=== PATIENT | male | born 1955 | race Caucasian/White ===

== ENCOUNTER 2017-05-16 20:45 | Emergency (ER) | payer OTHER ==
[2017-05-16 20:58] VITALS: BP 179/93; PULSE 68; TEMP 98; BMI 32.5
[2017-05-16] MEDS ORDERED: KETOROLAC TROMETHAMINE 30 MG/1 ML VIAL IM ONE (21:34)
--- NOTE | 2017-05-16 21:35 | PDOC ---
History of Present Illness - General Chief Complaint: Pain Stated Complaint: LEG PAIN Time Seen by Provider: 05/16/17 21:28 History Source: Patient Exam Limitations: No Limitations - History of Present Illness Initial Comments: 05/16/17 21:35 CHIEF COMPLAINT: Leg pain HISTORY OF PRESENT ILLNESS: This is a 61 year old male with a history of HTN and gout (on daily allopurinol) who presents complaining of 3 days of left leg pain. He has knee swelling (knee is the usual location for his gout flares), but also has calf swelling, tenderness, and cramping, which has never occurred with his gout. He is unable to bear full weight because of the pain. He denies chest pain or shortness of breath. He denies cigarette smoking, recent travel/ trauma/surgery, and family/personal history of hypercoaguability. Vital signs on arrival are notable for BP 179/93. REVIEW OF SYSTEMS: GENERAL/CONSTITUTIONAL: No fever or chills. No weakness. No weight change. HEAD, EYES, EARS, NOSE AND THROAT: No change in vision. No ear pain or discharge. No sore throat. CARDIOVASCULAR: No chest pain or palpitations. RESPIRATORY: No cough, wheezing, or shortness of breath. GASTROINTESTINAL: No nausea, vomiting, diarrhea or constipation. GENITOURINARY: No dysuria, frequency, or change in urination. MUSCULOSKELETAL: See HPI SKIN: No rash or easy bruising. NEUROLOGIC: No headache, vertigo, loss of consciousness, or loss of sensation. PSYCHIATRIC: No depression or anxiety. ENDOCRINE: No increased thirst. No abnormal weight change. HEMATOLOGIC/LYMPHATIC: No anemia, easy bleeding, or history of blood clots. ALLERGIC/IMMUNOLOGIC: No hives or skin allergy. No latex allergy. PHYSICAL EXAM: GENERAL: The patient is awake, alert, and fully oriented, in no acute distress. HEAD: Normal with no signs of trauma. ENT: Pupils equal, round and reactive to light, extraocular movements intact, sclera anicteric, conjunctiva clear. Neck supple. LUNGS: Clear to auscultation bilaterally. Normal excursion. No respiratory distress or use of accessory muscles. CV: RRR, S1/S2, no MRG. Cap refill < 2 sec. ABDOMEN: Soft, non-distended, non-tender. EXTREMITIES: Mild edema of knee, full ROM. Tense edema of calf with 3+ pitting. Positive Homans' sign. NEUROLOGICAL: Normal speech, normal gait with partial weight-bearing. CN II-XII grossly intact. PSYCH: Normal mood, normal affect. SKIN: Warm, dry, normal turgor, no rashes or lesions noted. Past History - Past Medical History Allergies/Adverse Reactions: Allergies Allergy/AdvReac Type Severity Reaction Status Date / Time No Known Drug Allergies Allergy Verified 05/16/17 20:58 Home Medications: Ambulatory Orders Albuterol Sulfate Inhaler - [Ventolin HFA Inhaler -] 1 - 2 inh PO QID PRN Allopurinol [Zyloprim -] 100 mg PO DAILY 10/22/15 Losartan Potassium [Cozaar] 50 mg PO DAILY 10/22/15 Mometasone Furoate [Nasonex] 1 - 2 inh NS DAILY 10/22/15 Naproxen [Naprosyn -] 250 mg PO BID PRN #0 11/07/15 Anemia: No Asthma: Yes Cancer: No Cardiac Disorders: No CVA: No COPD: No CHF: No Dementia: No Diabetes: No GI Disorders: Yes (ACID REFLUX) Disorders: No HTN: Yes Hypercholesterolemia: Yes Liver Disease: No ("fatty liver") Seizures: No Thyroid Disease: No Other medical history: gout - Surgical History Abdominal Surgery: No Appendectomy: No Cardiac Surgery: No Cholecystectomy: No Lung Surgery: No Neurologic Surgery: No 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) - Psycho/Social/Smoking Cessation Hx Suicidal Ideation: No Smoking Status: No Smoking History: Never smoked Have you smoked in the past 12 months: No Number of Cigarettes Smoked Daily: 0 If you are a former smoker, when did you quit?: 2010 Hx Alcohol Use: No Drug/Substance Use Hx: No Substance Use Type: Alcohol Hx Substance Use Treatment: No *Physical Exam - Vital Signs Last Vital Signs Temp Pulse Resp BP Pulse Ox 98 F 68 18 179/93 99 05/16/17 20:52 05/16/17 20:52 05/16/17 20:52 05/16/17 20:52 05/16/17 20:52 ED Treatment Course - LABORATORY CBC & Chemistry Diagram: 05/16/17 21:50 05/16/17 21:50 - RADIOLOGY Radiology Studies Ordered: Category Date Time Status KNEE 3 POS-LEFT [RAD] Stat Radiology 05/16/17 21:29 Ordered DUPLEX VASCUL US-1 LEG [US] Stat Ultrasound 05/16/17 21:34 Ordered Medical Decision Making - Medical Decision Making 05/16/17 22:11 A/P: 61 year old male with atraumatic left knee and calf pain and swelling. 1. Knee xray 2. Basic labs, uric acid 3. Duplex LE u/s to r/o DVT 4. Toradol 30mg IM for pain 5. Re-assess
[2017-05-16 21:56] LABS: BASOPHIL 0.2 % (0-2.0); EOSINOPHIL 5.1 % (0-4.5); MCH 28.8 pg (25.7-33.7); MEAN CELL VOLUME 87.3 fl (80-96); MEAN PLT VOLUME 8.5 fl (7.5-11.1); NEUTROPHILS 48.5 % (42.8-82.8); PLATELET COUNT 246 K/MM3 (134-434); RDW 13.6 % (11.9-15.9); WHITE BLOOD COUNT 8.4 K/mm3 (4.0-10.0)
[2017-05-16] MEDS ORDERED: KETOROLAC TROMETHAMINE 30 MG/1 ML VIAL ONE (22:02)
[2017-05-16 22:09] LABS: INR 1.43 (0.82-1.09); PROTHROMBIN TIME (PATIENT) 15.9 SEC (9.98-11.88)
[2017-05-16 22:21] LABS: ALBUMIN 3.7 g/dl (3.4-5.0); ALK PHOS 147 U/L (45-117); ANION GAP 6 (8-16); BILIRUBIN,TOTAL 0.3 mg/dL (0.2-1.0); CO2 28 mmol/L (21-32); CREATININE 0.8 mg/dL (0.7-1.3); GLUCOSE,RANDOM 150 mg/dL (74-106); SGOT/AST 20 U/L (15-37); SGPT/ALT 31 U/L (12-78); TOT PROT 7.4 g/dl (6.4-8.2); URIC ACID 6.5 mg/dL (2.6-7.2)
--- NOTE | 2017-05-17 00:10 | PDOC ---
*Physical Exam - Vital Signs Last Vital Signs Temp Pulse Resp BP Pulse Ox 98 F 68 18 179/93 99 05/16/17 20:52 05/16/17 20:52 05/16/17 20:52 05/16/17 20:52 05/16/17 20:52 ED Treatment Course - LABORATORY CBC & Chemistry Diagram: 05/16/17 21:50 05/16/17 21:50 - ADDITIONAL ORDERS Additional order review: Laboratory Results 05/16/17 05/16/17 21:50 21:50 PT with INR 15.90 H INR 1.43 H Sodium 138 Potassium 4.0 Chloride 104 Carbon Dioxide 28 Anion Gap 6 L BUN 17 Creatinine 0.8 Creat Clearance w eGFR > 60 Random Glucose 150 H Uric Acid 6.5 Calcium 9.0 Total Bilirubin 0.3 AST 20 ALT 31 Alkaline Phosphatase 147 H Total Protein 7.4 Albumin 3.7 05/16/17 21:50 RBC 4.65 MCV 87.3 MCHC 33.0 RDW 13.6 MPV 8.5 Neutrophils % 48.5 Lymphocytes % 38.2 Monocytes % 8.0 Eosinophils % 5.1 H Basophils % 0.2 - Medications Given in the ED: ED Medications Discontinued Medications Generic Name Dose Route Start Last Admin Trade Name Freq PRN Reason Stop Dose Admin Ketorolac Tromethamine 30 mg 05/16/17 21:34 05/16/17 22:13 Toradol Injection - IM 05/16/17 21:35 30 mg ONCE ONE Administration Progress Note - Progress Note Progress Note: US LLE: No DVT *DC/Admit/Observation/Transfer Diagnosis at time of Disposition: Pain and swelling of left lower leg - Discharge Dispostion Disposition: HOME Condition at time of disposition: Stable Admit: No - Referrals Referrals: Claude Sotelo MD [Primary Care Provider] - Sherron Burns MD [Staff Physician] - - Patient Instructions Printed Discharge Instructions: DI for Leg Pain Additional Instructions: Elevate Follow up with the vascular surgeon listed on your discharge Return to the ER for severe/persistent/worsening symptoms
== END 2017-05-17 00:15 | disposition home or self-care (01) ==
LOC: JERFT 20:45 → JER 20:45
PROC: 3E0233Z Introduction of Anti-inflammatory into Muscle, Percutaneous Approach (ICD-10-PCS; principal; 2017-05-16)
DX: M79.662 Pain in left lower leg (principal); M10.9 Gout, unspecified; I10 Essential (primary) hypertension
CPT/HCPCS: 36415; 73562-TC-LT; 80053; 84550; 85025; 85610; 93971-TC; 96372; 99281-25

== ENCOUNTER 2018-06-18 21:54 | Inpatient (IN) | payer OTHER ==
[2018-06-18 21:58] VITALS: BMI 31.6
--- NOTE | 2018-06-18 22:18 | PDOC ---
History of Present Illness - General Chief Complaint: Chest Pain Stated Complaint: CHEST PAIN, SOB, NAUSEA Time Seen by Provider: 06/18/18 22:09 History Source: Patient Exam Limitations: No Limitations - History of Present Illness Initial Comments: 06/18/18 22:11 This is a 62 YOM with h/o HTN, asthma, and gout (on allopurinol) who p/w 06/09 non-radiating sharp substernal chest pain onset 45 minutes [facility] [facility]ER to the ED while he was at rest. He has associated nausea but no vomiting, radiation of the pain , diaphoresis, lightheadedness, headache, palpitations, abdominal pain, back pain, fainting, numbness, tingling, weakness, f/c, or other symptoms. He did not take any medications for the pain. He has never had these symptoms before. He has been taking Prednisone for the past 2 days for URI/bronchitis/asthma exacerbation. Past History - Past Medical History Allergies/Adverse Reactions: Allergies Allergy/AdvReac Type Severity Reaction Status Date / Time No Known Drug Allergies Allergy Verified 06/18/18 21:58 Home Medications: Ambulatory Orders Albuterol Sulfate Inhaler - [Ventolin HFA Inhaler -] 1 - 2 inh PO QID PRN Losartan Potassium [Cozaar] 50 mg PO DAILY 10/22/15 Mometasone Furoate [Nasonex] 1 - 2 inh NS DAILY 10/22/15 Fluticasone/Salmeterol [Advair 250-50 Diskus] 1 each IH DAILY 05/24/17 Docusate Sodium [Colace -] 100 mg PO BID #14 capsule 05/27/17 Walker [Ultra-Light Rollator] 1 each MC ONCE 1 Days each 05/27/17 oxyCODONE HCL [Roxicodone -] 5 mg PO Q6H PRN #12 tablet MDD 20mg 05/27/17 Anemia: No Asthma: Yes Cancer: No Cardiac Disorders: No CVA: No COPD: No CHF: No Dementia: No Diabetes: No GI Disorders: Yes (ACID REFLUX) Disorders: No HTN: Yes Hypercholesterolemia: Yes Liver Disease: No ("fatty liver") Seizures: No Thyroid Disease: No - Surgical History Abdominal Surgery: No Appendectomy: No Cardiac Surgery: No Cholecystectomy: No Lung Surgery: No Neurologic Surgery: No 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) - Suicide/Smoking/Psychosocial Hx Smoking Status: No Smoking History: Never smoked Have you smoked in the past 12 months: No Number of Cigarettes Smoked Daily: 0 If you are a former smoker, when did you quit?: 2010 Hx Alcohol Use: No Drug/Substance Use Hx: No Substance Use Type: Alcohol Hx Substance Use Treatment: No Cardiac Specific PMH - Complaint Specific PMHX Pacemaker: No Review of Systems - Review of Systems Able to Perform ROS?: Yes Constitutional: No: Chills, Diaphoresis, Fever, Unexplained wgt Loss HEENTM: No: Nose Congestion, Throat Pain Respiratory: No: Cough, Shortness of Breath Cardiac (ROS): Yes: Chest Pain. No: Palpitations ABD/GI: Yes: Nausea. No: Constipated, Diarrhea, Vomiting : No: Burning, Dysuria Musculoskeletal: No: Back Pain, Neck Pain Integumentary: No: Bruising, Rash Neurological: No: Headache, Numbness, Tingling, Weakness, Dizziness Endocrine: No: Unexplained Weight Gain, Unexplained Weight Loss *Physical Exam - Vital Signs Last Vital Signs Temp Pulse Resp BP Pulse Ox 97.7 F 92 H 18 135/88 97 06/18/18 21:56 06/18/18 21:56 06/18/18 21:56 06/18/18 21:56 06/18/18 21:56 ED Treatment Course - LABORATORY CBC & Chemistry Diagram: 06/18/18 23:08 06/18/18 23:08 - ADDITIONAL ORDERS Additional order review: Laboratory Results 06/18/18 23:08 PT with INR 15.50 H INR 1.31 H 06/18/18 23:08 RBC 5.14 MCV 87.4 MCHC 32.4 RDW 13.8 MPV 9.0 Neutrophils % 84.4 H D Lymphocytes % 12.7 D Monocytes % 2.0 L Eosinophils % 0.2 D Basophils % 0.7 - RADIOLOGY Radiology Studies Ordered: Category Date Time Status CHEST X-RAY PORTABLE* [RAD] Stat Radiology 06/18/18 22:32 Taken - Medications Given in the ED: ED Medications Discontinued Medications Generic Name Dose Route Start Last Admin Trade Name Freq PRN Reason Stop Dose Admin Diltiazem HCl 20 mg 06/18/18 22:28 06/18/18 22:44 Cardizem Injection - IVPUSH 06/18/18 22:29 20 mg ONCE ONE Administration Diltiazem HCl 30 mg 06/18/18 22:43 06/18/18 22:48 Cardizem - PO 06/18/18 22:44 30 mg ONCE ONE Administration Diltiazem HCl 10 mg 06/18/18 22:45 06/18/18 22:48 Cardizem Injection - IVPUSH 06/18/18 22:46 10 mg ONCE ONE Administration Sodium Chloride 1,000 mls @ 1,000 mls/hr 06/18/18 22:28 06/18/18 22:48 Normal Saline - IV 06/18/18 23:27 1,000 mls/hr ASDIR STA Administration Medical Decision Making - Medical Decision Making 06/18/18 22:45 20 mg IV push diltiazem given with decrease in ventricular rate to the 130s. Additional 30 mg PO Diltiazem given PO. Patient's rate up to the 140s. Additional 10 mg Diltiazem ordered IV push. 06/18/18 23:47 Patient's repeat BP is 136 systolic, HR is 124 at this time, still A-fib with RVR, states no pain. 20 mg IV push Diltiazem ordered. *DC/Admit/Observation/Transfer Diagnosis at time of Disposition: Atrial fibrillation with RVR Chest pain Qualifiers: Chest pain type: unspecified Qualified Code(s): R07.9 - Chest pain, unspecified - Referrals - Patient Instructions - Post Discharge Activity
[2018-06-18] MEDS ORDERED: SODIUM CHLORIDE 1,000 ML IV STA (22:28)
[2018-06-18] MEDS ORDERED: dilTIAZem HCL 50 MG/10 ML - 10 ML VIAL IVPUSH ONE ×4 (22:28→23:46)
[2018-06-18] MEDS ORDERED: dilTIAZem HCL 50 MG/10 ML - 10 ML VIAL ONE (22:37)
[2018-06-18] MEDS ORDERED: dilTIAZem HCL 30 MG TABLET (FP) PO ONE (22:43)
[2018-06-18] MEDS ORDERED: dilTIAZem HCL 30 MG TABLET (FP) ONE (22:45)
--- NOTE | 2018-06-18 22:56 | PDOC ---
Attending Attestation - Resident Resident Name: Martha Ricketts - ED Attending Attestation I have performed the following: I have examined & evaluated the patient, The case was reviewed & discussed with the resident, I agree w/resident's findings & plan, Exceptions are as noted - HPI HPI: 06/18/18 22:47 62-year-old male with past medical history of hypertension, asthma, gout presents with A. fib in rapid ventricular response. The patient reports a proximal 1 hour prior to arrival that he felt sudden onset of chest tightness and rapid palpitations. First-time episode. Never had a history of atrial fibrillation. States is recently being treated for URI and is on prednisone. - Physicial Exam PE: 06/18/18 22:56 GENERAL: Awake, alert, and fully oriented, in no acute distress HEAD: No signs of trauma EYES: EOMI, sclera anicteric, conjunctiva clear ENT: Auricles normal inspection, hearing grossly normal, nares patent, oropharynx clear without exudates. Moist mucosa NECK: Normal ROM, supple, no lymphadenopathy, JVD, or masses LUNGS: Breath sounds equal, clear to auscultation bilaterally. No wheezes, and no crackles HEART: Irregular rate and rhythm, normal S1 and S2, no murmurs, rubs or gallops. +tachycardic ABDOMEN: Soft, nontender, normoactive bowel sounds. No guarding, no rebound. No masses EXTREMITIES: Normal range of motion, no edema. No clubbing or cyanosis. No cords, erythema, or tenderness NEUROLOGICAL: Cranial nerves II through XII grossly intact. Normal speech, normal gait SKIN: Warm, Dry, normal turgor, no rashes or lesions noted. - Critical Care Time Total Critical Care Time: 45 Critical Care Statement: The care of this patient involved high complexity decision making to prevent further life threatening deterioration of the patient 's condition and/or to evaluate & treat vital organ system(s) failure or risk of failure. - Medical Decision Making 06/18/18 22:56 Vital Signs Temp Pulse Resp BP Pulse Ox 97.7 F 92 H 18 135/88 97 06/18/18 21:56 06/18/18 21:56 06/18/18 21:56 06/18/18 21:56 06/18/18 21:56 Patient with new onset of atrial fibrillation. [id number]: 1. Rate control. Telemetry. Labs including troponin, TSH. Admit. 06/19/18 00:50 CBC, BMP 06/18/18 23:08 06/18/18 23:08 CMP Sodium 135 mmol/L (136-145) L 06/18/18 23:08 Potassium 4.8 mmol/L (3.5-5.1) 06/18/18 23:08 Chloride 101 mmol/L (98-107) 06/18/18 23:08 Carbon Dioxide 24 mmol/L (21-32) 06/18/18 23:08 Anion Gap 10 MMOL/L (8-16) 06/18/18 23:08 BUN 17 mg/dL (7-18) 06/18/18 23:08 Creatinine 1.1 mg/dL (0.55-1.3) 06/18/18 23:08 Creat Clearance w eGFR > 60 (>60) 06/18/18 23:08 Random Glucose 298 mg/dL (74-106) H 06/18/18 23:08 Calcium 9.2 mg/dL (8.5-10.1) 06/18/18 23:08 Magnesium 2.5 mg/dL (1.8-2.4) H 06/18/18 23:08 Total Bilirubin 0.4 mg/dL (0.2-1) 06/18/18 23:08 AST 84 U/L (15-37) H 06/18/18 23:08 ALT 81 U/L (13-61) H 06/18/18 23:08 Alkaline Phosphatase 158 U/L (45-117) H 06/18/18 23:08 Creatine Kinase 120 IU/L (26-308) 06/18/18 23:08 Troponin I < 0.02 ng/ml (0.00-0.05) 06/18/18 23:08 Total Protein 8.6 g/dl (6.4-8.2) H 06/18/18 23:08 Albumin 4.0 g/dl (3.4-5.0) 06/18/18 23:08 Lipase 305 U/L (73-393) 06/18/18 23:08 TSH 0.77 uIU/ml (0.358-3.74) 06/18/18 23:08 Trop negative. Pt was given 20 mg IV diltiazem with improvement of HR to 120s, However, went up to 130s. Given an additional 10 mg IV diltiazem with significant improvement. Pt's HR was back to 130, and additional 20 mg IV diltiazem given with significant improvement. BP stable. Pt's HR fluctuates between 80s to 110s. Pt given an aspirin. Repeat ECG ordered. Case discussed with [facility] hospitalist. Accepts to telemetry admission. Case discussed in detail with admitting physician including history, physical exam and ancillary studies. Admitting physician has assumed care for the patient, will follow all pending diagnostics and will complete the evaluation and treatment. *DC/Admit/Observation/Transfer Diagnosis at time of Disposition: Atrial fibrillation with RVR Chest pain Qualifiers: Chest pain type: unspecified Qualified Code(s): R07.9 - Chest pain, unspecified - Discharge Dispostion Condition at time of disposition: Stable Decision to Admit order: Yes - Referrals - Patient Instructions - Post Discharge Activity Heart Score/ECG Review #1 ECG reviewed & interpreted by me at: 22:00 06/18/18 22:46 afibr RVR 172 msec, incomplete RBBB, STD V3-V6, QTC 460 msec
[2018-06-18 23:23] LABS: BASO % 0.7 % (0-2.0); EOS % 0.2 % (0-4.5); HEMATOCRIT 44.9 % (35.4-49); HEMOGLOBIN 14.6 GM/dL (11.7-16.9); LYMPH % 12.7 % (8-40); MCH 28.3 pg (25.7-33.7); MCHC 32.4 g/dl (32.0-35.9); MEAN CELL VOLUME 87.4 fl (80-96); NEUT % 84.4 % (42.8-82.8); PLATELET COUNT 300 K/MM3 (134-434); RBC 5.14 M/mm3 (4.00-5.60); RDW 13.8 % (11.9-15.9); WHITE BLOOD COUNT 12.3 K/mm3 (4.0-10.0)
[2018-06-18 23:26] LABS: INR 1.31 (0.83-1.09); PROTHROMBIN TIME (PATIENT) 15.5 SEC (9.7-13.0)
[2018-06-18] MEDS ORDERED: SODIUM CHLORIDE 0.9% 500 ML INFUS.BAG IV ONE (23:34)
[2018-06-19] MEDS ORDERED: dilTIAZem HCL 125 MG/25 ML - 25 ML VIAL ONE (00:01)
[2018-06-19 00:15] LABS: ALK PHOS 158 U/L (45-117); ANION GAP 10 MMOL/L (8-16); BILIRUBIN,TOTAL 0.4 mg/dL (0.2-1); BLOOD UREA NITROGEN 17 mg/dL (7-18); CALCIUM 9.2 mg/dL (8.5-10.1); CHLORIDE 101 mmol/L (98-107); CO2 24 mmol/L (21-32); CREATININE 1.1 mg/dL (0.55-1.3); GLUCOSE,RANDOM 298 mg/dL (74-106); MAGNESIUM 2.5 mg/dL (1.8-2.4); POTASSIUM 4.8 mmol/L (3.5-5.1); SGOT/AST 84 U/L (15-37); SGPT/ALT 81 U/L (13-61); SODIUM 135 mmol/L (136-145); TOT PROT 8.6 g/dl (6.4-8.2)
[2018-06-19] MEDS ORDERED: ASPIRIN 81 MG CHEWABLE TABLETS PO ONE (00:48)
[2018-06-19] MEDS ORDERED: HEPARIN NA (PORCINE) 5,000 UNITS/ML 1ML VIAL IVPUSH PRN ×2 (01:29)
[2018-06-19] MEDS ORDERED: HEPARIN INFUSION - 25,000 UNITS/500 ML INFUS.BAG IVPB SCH (01:30)
[2018-06-19] MEDS ORDERED: ALBUTEROL SO4 8 GM HFA INHALER IH PRN (01:31)
--- NOTE | 2018-06-19 01:41 | HP ---
CHIEF COMPLAINT: chest pain PCP: Dr. Sotelo HISTORY OF PRESENT ILLNESS: 62 year old male with a hx of gout, asthma, and hypertension presents to the hospital for 06/09, midsternal, stabbing chest pain that started around 30 minutes before coming to the hospital while the patient was eating dinner. He reports that he was sitting at the dinner table when he started to feel a tight squeezing around his mid-sternum that progressed. He reports that it was so severe it was pushing through to his back as well. He felt mildly short of breath during the episode. States that this has never happened to him in the past. Denies any cardiac conditions. In the ED, found to be in A fib/RVR with rate in the 170s. ED administered several doses of diltiazem and brought the rate down to 110-120 on telemetry. Patient feels better and does not have any current SOB. Patient states that he was recently started on prednisone for cough and URI 2 days ago and was put on tapering dose for 5 days. Patient does not recall his dose of prednisone. Denies fevers, chills, nausea, vomiting, diarrhea, sick contacts, or recent travel. ER course was notable for: (1) EKG Afib rvr rate 172 (2) trop - (3) Recent Travel: denies PAST MEDICAL HISTORY: gout, asthma, HTN PAST SURGICAL HISTORY: L knee and L shoulder surgery Social History: Smoking: former, quit 10 years ago, smoker FOR 10 years Alcohol: denies Drugs: denies Family History: mom had [place] and CABG Allergies No Known Drug Allergies Allergy (Verified 06/18/18 21:58) HOME MEDICATIONS: Home Medications Medication Instructions Recorded Albuterol Sulfate Inhaler - 1 - 2 inh PO QID PRN 10/22/15 [Ventolin HFA Inhaler -] Losartan Potassium [Cozaar] 50 mg PO DAILY 10/22/15 Mometasone Furoate [Nasonex] 1 - 2 inh NS DAILY 10/22/15 Fluticasone/Salmeterol [Advair 1 each IH DAILY 05/24/17 250-50 Diskus] Docusate Sodium [Colace -] 100 mg PO BID #14 capsule 05/27/17 Walker [Ultra-Light Rollator] 1 each MC ONCE 1 Days each 05/27/17 oxyCODONE HCL [Roxicodone -] 5 mg PO Q6H PRN #12 tablet MDD 20mg 05/27/17 REVIEW OF SYSTEMS CONSTITUTIONAL: Absent: fever, chills, diaphoresis, generalized weakness, malaise, loss of appetite, weight change HEENT: Absent: rhinorrhea, nasal congestion, throat pain, throat swelling, difficulty swallowing, mouth swelling, ear pain, eye pain, visual changes CARDIOVASCULAR: chest pain, irregular heart rate Absent: syncope, palpitations, lightheadedness, peripheral edema RESPIRATORY: Absent: cough, shortness of breath, dyspnea with exertion, orthopnea, wheezing, stridor, hemoptysis GASTROINTESTINAL: Absent: abdominal pain, abdominal distension, nausea, vomiting, diarrhea, constipation, melena, hematochezia GENITOURINARY: Absent: dysuria, frequency, urgency, hesitancy, hematuria, flank pain, genital pain MUSCULOSKELETAL: Absent: myalgia, arthralgia, joint swelling, back pain, neck pain SKIN: Absent: rash, itching, pallor HEMATOLOGIC/IMMUNOLOGIC: Absent: easy bleeding, easy bruising, lymphadenopathy, frequent infections ENDOCRINE: Absent: unexplained weight gain, unexplained weight loss, heat intolerance, cold intolerance NEUROLOGIC: Absent: headache, focal weakness or paresthesias, dizziness, unsteady gait, seizure, mental status changes, bladder or bowel incontinence PSYCHIATRIC: Absent: anxiety, depression, suicidal or homicidal ideation, hallucinations. PHYSICAL EXAMINATION Vital Signs - 24 hr 06/18/18 21:56 Temperature 97.7 F Pulse Rate 92 H Respiratory 18 Rate Blood Pressure 135/88 O2 Sat by Pulse 97 Oximetry (%) GENERAL: A&Ox3, no acute distress EYES: PERRLA, EOMI ENT: Moist mucus membranes NECK: No JVD LUNGS: CTA, no wheezes HEART: RRR, no murmurs ABDOMEN: Soft, nontender, BS present MUSCULOSKELETAL: No CVA Tenderness EXTREMITIES: 2+ pulses, no edema. NEUROLOGICAL: Cranial nerves II-XII intact. Laboratory Results - last 24 hr 06/18/18 06/18/18 06/18/18 23:08 23:08 23:08 WBC 12.3 H RBC 5.14 Hgb 14.6 Hct 44.9 MCV 87.4 MCH 28.3 MCHC 32.4 RDW 13.8 Plt Count 300 MPV 9.0 Absolute Neuts (auto) 10.3 H Neutrophils % 84.4 H D Lymphocytes % 12.7 D Monocytes % 2.0 L Eosinophils % 0.2 D Basophils % 0.7 Nucleated RBC % 0 PT with INR 15.50 H INR 1.31 H Sodium 135 L Potassium 4.8 Chloride 101 Carbon Dioxide 24 Anion Gap 10 BUN 17 Creatinine 1.1 Creat Clearance w eGFR > 60 Random Glucose 298 H Calcium 9.2 Magnesium 2.5 H Total Bilirubin 0.4 AST 84 H ALT 81 H Alkaline Phosphatase 158 H Creatine Kinase 120 Troponin I < 0.02 Total Protein 8.6 H Albumin 4.0 Lipase TSH 06/18/18 23:08 WBC RBC Hgb Hct MCV MCH MCHC RDW Plt Count MPV Absolute Neuts (auto) Neutrophils % Lymphocytes % Monocytes % Eosinophils % Basophils % Nucleated RBC % PT with INR INR Sodium Potassium Chloride Carbon Dioxide Anion Gap BUN Creatinine Creat Clearance w eGFR Random Glucose Calcium Magnesium Total Bilirubin AST ALT Alkaline Phosphatase Creatine Kinase Troponin I Total Protein Albumin Lipase 305 TSH 0.77 ASSESSMENT/PLAN: 62 year old male with a hx of gout, asthma, and hypertension presents to the hospital for 06/09, midsternal, stabbing chest pain that started around 30 minutes before coming to the hospital while the patient was eating dinner #Atrial Fibrillation with Rapid Ventricular Response: improved, rate on tele 110 -120, unclear etiology since patient is a non-drinker, could be thyroid disorder , metabolic, heart disease; CHADs-Vasc2 score = 1 -new onset, will need to be admitted for cardiac monitoring -EKG initial was afib/rvr with vent rate 170 - showed ST depressions diffusely except 1 elevation in lead III, may be due to elevated heart rate. Will repeat EKG, but will treat as if NSTEMI for now -troponin negative -CKMB negative -check TSH, lipid panel -repeat troponins and EKG in AM -echocardiogram ordered -cardiac consulted, spoke w/ Dr. Paul -metoprolol 25 BID -heparin drip started with pTT goal 50-75 -loaded with aspirin, plavix -gave atorvastatin 80 once #Asthma: controlled, patient was recently given a tapering dose of steroids, but patient does not remember the dose -asked patient to find out dose of prednisone -will continue once dose is confirmed with him or pharmacy in AM -continue home symbicort -continue home albuterol Q6h PRN #Hypertension: stable -continue losartan 50 -started metoprolol #Transaminitis: possibly demand related due to elevated heart rate and decreased filling pressures -will repeat in AM #FEN -NS @ 25 PO BID -lytes wnl #Prophylaxis -heparin drip #Disposition -admit telemetry Visit type - Emergency Visit Emergency Visit: Yes ED Registration Date: 06/19/18 Care time: The patient presented to the Emergency Department on the above date and was hospitalized for further evaluation of their emergent condition. - New Patient This patient is new to me today: Yes Date on this admission: 06/19/18 - Critical Care Critical Care patient: No
[2018-06-19] MEDS ORDERED: SODIUM CHLORIDE 1,000 ML IV SCH (01:45)
[2018-06-19] MEDS ORDERED: METOPROLOL TARTRATE 25 MG TABLET (FP) ONE (01:54)
[2018-06-19] MEDS ORDERED: CLOPIDOGREL BISULFATE 75 MG TABLET (FP) ONE (01:54)
[2018-06-19] MEDS ORDERED: HEPARIN INFUSION - 25,000 UNITS/500 ML INFUS.BAG IVPB ONE (01:56)
[2018-06-19] MEDS ORDERED: ATORVASTATIN CA 80 MG TABLET (FP) PO ONE (02:00)
[2018-06-19] MEDS: CLOPIDOGREL BISULFATE 300 MG TABLET PO ONE ×2 (02:05→02:30)
[2018-06-19] MEDS: METOPROLOL TARTRATE 25 MG TABLET (FP) PO SCH ×2 (02:05→09:56)
--- NOTE | 2018-06-19 04:02 | PN ---
Teaching Attending Note Name of Resident: Esvin Whitney ATTENDING PHYSICIAN STATEMENT I saw and evaluated the patient. Chart, data, imaging reviewed. I reviewed the resident's note and discussed the case with the resident. I agree with the resident's findings and plan as documented. SUBJECTIVE: 62 year old male with a hx of gout, asthma, and hypertension presented to the hospital for 06/09, midsternal, stabbing chest pain that started 06/18 in the evening, about 30min before he presented to hospital. Pain started while pt was in resting position. It was improved since its initial onset. Pt is a former smoker. NO + family history. OBJECTIVE: Last Vital Signs Temp Pulse Resp BP Pulse Ox 97.7 F 92 H 18 135/88 97 06/18/18 21:56 06/18/18 21:56 06/18/18 21:56 06/18/18 21:56 06/18/18 21:56 General- nad, aaox 3 , obese heent- at, nc neck supple cv -s1+s2+rrr chest- clear abdomen -obese , nontender ext -no pedal edema Abnormal Lab Results 06/18/18 06/18/18 06/18/18 23:08 23:08 23:08 WBC 12.3 H Absolute Neuts (auto) 10.3 H Neutrophils % 84.4 H D Monocytes % 2.0 L PT with INR 15.50 H INR 1.31 H Sodium 135 L Random Glucose 298 H Magnesium 2.5 H AST 84 H ALT 81 H Alkaline Phosphatase 158 H Total Protein 8.6 H ekg reviewed- afib, st depressions in lateral leads seen CXR reviewed ASSESSMENT AND PLAN: 62yo man with clinical history strongly suggestive of ACS. Lateral lead depressions seen on EKG. Associated new onset of Atrial fibrillation with rapid ventricular response. S/P IV pushes of diltiazem. -admit to telemetry -metoprolol 25mg po bid for rate control -ASA loading dose -Clopidogrel loading dose -Heparin drip -statin -nitroglycerin sublingual -cardiology consult - Dr. Paul -transthoracic echo DVT ppx -heparin drip
[2018-06-19 06:09] LABS: URINE APPEARANCE CLEAR; URINE BILIRUBIN NEGATIVE (<2.0 mg/dL); URINE COLOR STRAW; URINE GLUCOSE (UA) 3+ (NEGATIVE); URINE KETONE NEGATIVE (NEGATIVE); URINE LEUK ESTERASE NEGATIVE (NEGATIVE); URINE NITRITE NEGATIVE (NEGATIVE); URINE PROTEIN NEGATIVE (NEGATIVE); URINE UROBILINOGEN NEGATIVE mg/dL (0.2-1.0)
[2018-06-19 06:45] LABS: ANION GAP 6 MMOL/L (8-16); BLOOD UREA NITROGEN 13 mg/dL (7-18); CALCIUM 8.1 mg/dL (8.5-10.1); CHLORIDE 113 mmol/L (98-107); CHOLESTEROL 191 mg/dL (50-200); CO2 21 mmol/L (21-32); CREATININE 0.7 mg/dL (0.55-1.3); GLUCOSE,RANDOM 137 mg/dL (74-106); HDL CHOLESTEROL 24 mg/dL (40-60); MAGNESIUM 2.3 mg/dL (1.8-2.4); PHOSPHOROUS 2.5 mg/dL (2.5-4.9); POTASSIUM 4.1 mmol/L (3.5-5.1); SODIUM 140 mmol/L (136-145); TRIGLYCERIDES 304 mg/dL (0-150)
[2018-06-19 08:25] LABS: HEMATOCRIT 39.2 % (35.4-49); HEMOGLOBIN 12.7 GM/dL (11.7-16.9); MCH 28.4 pg (25.7-33.7); MCHC 32.4 g/dl (32.0-35.9); MEAN CELL VOLUME 87.7 fl (80-96); MEAN PLT VOLUME 8.8 fl (7.5-11.1); PLATELET COUNT 263 K/MM3 (134-434); RBC 4.48 M/mm3 (4.00-5.60); RDW 13.6 % (11.9-15.9); WHITE BLOOD COUNT 12.9 K/mm3 (4.0-10.0)
--- NOTE | 2018-06-19 09:09 | EKG ---
Test Reason : Blood Pressure : / mmHG Vent. Rate : 172 BPM Atrial Rate : 178 BPM P-R Int : 000 ms QRS Dur : 114 ms QT Int : 272 ms P-R-T Axes : 000 078 -18 degrees QTc Int : 460 ms ATRIAL FIBRILLATION WITH RAPID VENTRICULAR RESPONSE INCOMPLETE RIGHT BUNDLE BRANCH BLOCK ABNORMAL ECG WHEN COMPARED WITH ECG OF 30-NOV-2006 01:10, SIGNIFICANT CHANGES HAVE OCCURRED Confirmed by SHRUTHI FREDERICK MD ([id number]) on 06/19/2018 9:08:51 AM Referred By: Confirmed By:SHRUTHI FREDERICK MD
--- NOTE | 2018-06-19 09:09 | EKG ---
Test Reason : Blood Pressure : / mmHG Vent. Rate : 126 BPM Atrial Rate : 163 BPM P-R Int : 000 ms QRS Dur : 112 ms QT Int : 344 ms P-R-T Axes : 000 054 025 degrees QTc Int : 498 ms ATRIAL FIBRILLATION WITH RAPID VENTRICULAR RESPONSE RIGHT BUNDLE BRANCH BLOCK ABNORMAL ECG WHEN COMPARED WITH ECG OF 18-JUN-2018 21:56, NON-SPECIFIC CHANGE IN ST SEGMENT IN INFERIOR LEADS ST NO LONGER DEPRESSED IN ANTEROLATERAL LEADS T WAVE INVERSION LESS EVIDENT IN INFERIOR LEADS Confirmed by SHRUTHI FREDERICK MD ([id number]) on 06/19/2018 9:09:11 AM Referred By: Confirmed By:SHRUTHI FREDERICK MD
[2018-06-19] MEDS: LOSARTAN POTASSIUM 50 MG TABLET (FP) PO SCH (09:56)
[2018-06-19] MEDS: DOCUSATE SODIUM 100 MG CAPSULE (FP) PO SCH ×2 (09:56→21:54)
[2018-06-19] MEDS ORDERED: BUDESONIDE/FORMETEROL FUMARATE 80/4.5 mcg INHALER IH SCH (10:00)
[2018-06-19] MEDS ORDERED: ASPIRIN 81 MG CHEWABLE TABLETS PO SCH (10:00)
[2018-06-19] MEDS ORDERED: metoPROLOL SUCCINATE 25 MG TAB.SR.24H (FP) PO ONE (11:37)
--- NOTE | 2018-06-19 11:45 | CON.CARD ---
Cardiology Consult (text) - Consultation Consultation Note: cc: cp, palps hpi: 62 m hx htn, gout here with cp, palps. Yesterday ate dinner and was sitting down and felt heart racing and central sharp chest pain. Mild sob. No dizzy loc pnd orthopnea le edema. No hx hrt dz. Came to ER and found new afib with rvr 170s. Rate controlled and now feeling better, no cp. Mild palps. pmh: per hpi psh: shoulder surgery social: ex tob ros: per hpi; no nvd baez vision changes abd pain gib hematuria dysuria muscle pain fever fam: no premature cad, scd meds: Ambulatory Orders Albuterol Sulfate Inhaler - [Ventolin HFA Inhaler -] 1 - 2 inh PO QID PRN Losartan Potassium [Cozaar] 50 mg PO DAILY 10/22/15 Mometasone Furoate [Nasonex] 1 - 2 inh NS DAILY 10/22/15 Fluticasone/Salmeterol [Advair 250-50 Diskus] 1 each IH DAILY 05/24/17 Docusate Sodium [Colace -] 100 mg PO BID #14 capsule 05/27/17 Walker [Ultra-Light Rollator] 1 each MC ONCE 1 Days each 05/27/17 oxyCODONE HCL [Roxicodone -] 5 mg PO Q6H PRN #12 tablet MDD 20mg 05/27/17 pe: Vital Signs Period Temp Pulse Resp BP Sys/Gill Pulse Ox Last 24 Hr 97.7 F-98.3 F 92-94 18-18 134-135/88-90 97 nad no jvd irreg, tachy, s1s2 no mrg cta bl nl eff aaox3 no le e/c/c abd nt nd pos bs no jaundice diaphoresis pos dp pt no carotid bruits Laboratory Last Values WBC 12.9 K/mm3 (4.0-10.0) H 06/19/18 06:00 RBC 4.48 M/mm3 (4.00-5.60) 06/19/18 06:00 Hgb 12.7 GM/dL (11.7-16.9) 06/19/18 06:00 Hct 39.2 % (35.4-49) 06/19/18 06:00 MCV 87.7 fl (80-96) 06/19/18 06:00 MCH 28.4 pg (25.7-33.7) 06/19/18 06:00 MCHC 32.4 g/dl (32.0-35.9) 06/19/18 06:00 RDW 13.6 % (11.9-15.9) 06/19/18 06:00 Plt Count 263 K/MM3 (134-434) 06/19/18 06:00 MPV 8.8 fl (7.5-11.1) 06/19/18 06:00 Absolute Neuts (auto) 10.3 K/mm3 (1.5-8.0) H 06/18/18 23:08 Neutrophils % 84.4 % (42.8-82.8) H D 06/18/18 23:08 Lymphocytes % 12.7 % (8-40) D 06/18/18 23:08 Monocytes % 2.0 % (3.8-10.2) L 06/18/18 23:08 Eosinophils % 0.2 % (0-4.5) D 06/18/18 23:08 Basophils % 0.7 % (0-2.0) 06/18/18 23:08 Nucleated RBC % 0 % (0-0) 06/18/18 23:08 PT with INR 15.50 SEC (9.7-13.0) H 06/18/18 23:08 INR 1.31 (0.83-1.09) H 06/18/18 23:08 PTT (Actin FS) 45.3 SECONDS (25.2-36.5) H 06/19/18 09:00 Sodium 140 mmol/L (136-145) 06/19/18 06:00 Potassium 4.1 mmol/L (3.5-5.1) 06/19/18 06:00 Chloride 113 mmol/L (98-107) H 06/19/18 06:00 Carbon Dioxide 21 mmol/L (21-32) 06/19/18 06:00 Anion Gap 6 MMOL/L (8-16) L 06/19/18 06:00 BUN 13 mg/dL (7-18) 06/19/18 06:00 Creatinine 0.7 mg/dL (0.55-1.3) 06/19/18 06:00 Creat Clearance w eGFR > 60 (>60) 06/19/18 06:00 Random Glucose 137 mg/dL (74-106) H 06/19/18 06:00 Calcium 8.1 mg/dL (8.5-10.1) L 06/19/18 06:00 Phosphorus 2.5 mg/dL (2.5-4.9) 06/19/18 06:00 Magnesium 2.3 mg/dL (1.8-2.4) 06/19/18 06:00 Total Bilirubin 0.4 mg/dL (0.2-1) 06/18/18 23:08 AST 84 U/L (15-37) H 06/18/18 23:08 ALT 81 U/L (13-61) H 06/18/18 23:08 Alkaline Phosphatase 158 U/L (45-117) H 06/18/18 23:08 Creatine Kinase 84 IU/L (26-308) 06/19/18 06:00 CK-MB (CK-2) 1.4 ng/mL (0.5-3.6) 06/19/18 06:00 Troponin I 0.05 ng/ml (0.00-0.05) 06/19/18 06:00 Total Protein 8.6 g/dl (6.4-8.2) H 06/18/18 23:08 Albumin 4.0 g/dl (3.4-5.0) 06/18/18 23:08 Triglycerides 304 mg/dL (0-150) H 06/19/18 06:00 Cholesterol 191 mg/dL (50-200) 06/19/18 06:00 Total LDL Cholesterol 131 mg/dL (5-100) H 06/19/18 06:00 HDL Cholesterol 24 mg/dL (40-60) L 06/19/18 06:00 Lipase 305 U/L (73-393) 06/18/18 23:08 TSH 0.70 uIU/ml (0.358-3.74) D 06/19/18 06:00 Urine Color Straw 06/09/18 05:45 Urine Appearance Clear 06/09/18 05:45 Urine pH 7.0 (5.0-8.0) 06/09/18 05:45 Ur Specific Morrice 1.011 (1.010-1.035) 06/09/18 05:45 Urine Protein Negative (NEGATIVE) 06/09/18 05:45 Urine Glucose (UA) 3+ (NEGATIVE) H 06/09/18 05:45 Urine Ketones Negative (NEGATIVE) 06/09/18 05:45 Urine Blood Negative (NEGATIVE) 06/09/18 05:45 Urine Nitrite Negative (NEGATIVE) 06/09/18 05:45 Urine Bilirubin Negative (<2.0 mg/dL) 06/09/18 05:45 Urine Urobilinogen Negative mg/dL (0.2-1.0) 06/09/18 05:45 Ur Leukocyte Esterase Negative (NEGATIVE) 06/09/18 05:45 cxr: clear lungs tele: afib rvr ecg: afib rvr 170s, rbbb, no st changes a/p: 62 m hx htn, gout here with cp, palps. cp, palps, new afib with rvr: -no signs acs or chf -symptoms likely due to afib with rvr, improved with rate control -still with mild rvr, will change to toprol 50 bid, cont tele -tsh wnl -check echo -will check nuclear stress test as well to r/o significant underlying cad causing his sxs as well -chadsvasc warrants ac, start eliquis 5 bid htn: -controlled, monitor with med adjustments
--- NOTE | 2018-06-19 12:09 | PN ---
Progress Note (short form) - Note Progress Note: currently asymptomatic. states the pain in the chest resolved after medications started in the ER. currently has no symptoms. had similiar episode 10 years ago which he did not seek medical attention. did have less severe CP 12 years ago which he had a treadmill stress test which he reports as negative. no other cardiac workup or follow up since then. dneis CP, SOB, fever, chills, palpitations. Current Medications Generic Name Dose Route Start Last Admin Trade Name Freq PRN Reason Stop Dose Admin Albuterol Sulfate 2 puff 06/19/18 01:31 Ventolin Hfa Inhaler - IH Q6H PRN ASTHMA Apixaban 5 mg 06/19/18 22:00 Eliquis - PO BID ESTHER Budesonide/Formoterol Fumarate 2 puff 06/19/18 10:00 Symbicort 80/4.5mcg - IH BID ESTHER Docusate Sodium 100 mg 06/19/18 10:00 06/19/18 09:56 Colace - PO 100 mg BID ESTHER Administration Fluticasone Propionate 1 spray 06/19/18 10:00 Flonase - NS DAILY ESTHER Heparin Sodium/Dextrose 25,000 units in 500 mls @ 20 mls/hr 06/19/18 01:30 09:57 Heparin Infusion - IVPB 06/19/18 18:00 1,100 units/hr TITR ESTHER 22 mls/hr Titration Protocol 1,000 UNITS/HR Sodium Chloride 1,000 mls @ 83 mls/hr 06/19/18 01:45 06/19/18 02:06 Normal Saline - IV 06/19/18 13:48 83 mls/hr ASDIR ESTHER Administration Losartan Potassium 50 mg 06/19/18 10:00 06/19/18 09:56 Cozaar - PO 50 mg DAILY ESTHER Administration Metoprolol Succinate 50 mg 06/19/18 22:00 Toprol Xl - PO BID ESTHER Last Vital Signs Temp Pulse Resp BP Pulse Ox 98.3 F 94 H 18 134/90 97 06/19/18 09:00 06/19/18 09:00 06/19/18 09:00 06/19/18 09:00 06/18/18 21:56 General NAD CV S1 S2 irregular, tachy Lungs mild scattered wheezing Abdomen soft NT/ND obese Extremities no pedal edema CBCD WBC 12.9 K/mm3 (4.0-10.0) H 06/19/18 06:00 RBC 4.48 M/mm3 (4.00-5.60) 06/19/18 06:00 Hgb 12.7 GM/dL (11.7-16.9) 06/19/18 06:00 Hct 39.2 % (35.4-49) 06/19/18 06:00 MCV 87.7 fl (80-96) 06/19/18 06:00 MCHC 32.4 g/dl (32.0-35.9) 06/19/18 06:00 RDW 13.6 % (11.9-15.9) 06/19/18 06:00 Plt Count 263 K/MM3 (134-434) 06/19/18 06:00 MPV 8.8 fl (7.5-11.1) 06/19/18 06:00 CMP Sodium 140 mmol/L (136-145) 06/19/18 06:00 Potassium 4.1 mmol/L (3.5-5.1) 06/19/18 06:00 Chloride 113 mmol/L (98-107) H 06/19/18 06:00 Carbon Dioxide 21 mmol/L (21-32) 06/19/18 06:00 Anion Gap 6 MMOL/L (8-16) L 06/19/18 06:00 BUN 13 mg/dL (7-18) 06/19/18 06:00 Creatinine 0.7 mg/dL (0.55-1.3) 06/19/18 06:00 Creat Clearance w eGFR > 60 (>60) 06/19/18 06:00 Calcium 8.1 mg/dL (8.5-10.1) L 06/19/18 06:00 Total Bilirubin 0.4 mg/dL (0.2-1) 06/18/18 23:08 AST 84 U/L (15-37) H 06/18/18 23:08 ALT 81 U/L (13-61) H 06/18/18 23:08 Alkaline Phosphatase 158 U/L (45-117) H 06/18/18 23:08 Total Protein 8.6 g/dl (6.4-8.2) H 06/18/18 23:08 Albumin 4.0 g/dl (3.4-5.0) 06/18/18 23:08 A/P 62yo M [facility] PM COPD, gout, HTN presented to the ER [facility] with SOB and palpitations and found to have afib iw RVR 1. Afib with RVR- newly diagnosed. treated with diltazem 10mg x2 and 20mg x1 and po. now started on metoprolol. will need to monitor breathing status while on betablocker iwth COPD. titrated up this AM to optimize control. High [id number] requiring anticoagulation. risks and benefits of anticoagluation as well as coumadin vs NOAC discussed. pt prefers NOAC. on hep ggt currently. will transition to eliquis. risks of blood thinner discussed and monitoring. will need ischemia eval. echo and stress test for thursday. cardio on board. TSH WNL 2. Hyperglycemia- suspicion for DM. will check A1c 3. Acute transaminitis- will repeat. hepatitis panel 4. Leukocytosis- no signs of infection. is on steroid taper at this time for recent COPD flare. will hold abx 5. COPD- has some wheezing. on steroid taper but does not recall current dose. will find out and then start. cont inhalers 6. Hypertriglycerdemia- unknwon if fasting levels. dietary changes. repeat in 6 months. if >500 will need start medications 7. HTN- controlled. cont home medications 8. DVT ppx- hep ggt PMD Dr Tinsley at [facility] Visit type - Emergency Visit Emergency Visit: Yes ED Registration Date: 06/19/18 Care time: The patient presented to the Emergency Department on the above date and was hospitalized for further evaluation of their emergent condition. - New Patient This patient is new to me today: Yes Date on this admission: 06/19/18 - Critical Care Critical Care patient: No - Discharge Referral Referred to [facility] Med P.C.: No
[2018-06-19] MEDS: FLUTICASONE PROP 0.05% 16 GM NASAL SPRAY NS SCH (14:29)
[2018-06-19] MEDS ORDERED: predniSONE 10 MG TABLET (UD) PO SCH ×2 (15:00→16:27)
[2018-06-19] MEDS ORDERED: predniSONE 20 MG TABLET (UD) PO ONE (16:45)
[2018-06-19] MEDS: PANTOPRAZOLE 40 MG TABLET (FP) PO SCH (17:58)
--- NOTE | 2018-06-19 18:01 | EKG ---
Test Reason : Blood Pressure : / mmHG Vent. Rate : 123 BPM Atrial Rate : 119 BPM P-R Int : 000 ms QRS Dur : 120 ms QT Int : 380 ms P-R-T Axes : 000 054 005 degrees QTc Int : 544 ms ATRIAL FIBRILLATION WITH RAPID VENTRICULAR RESPONSE WITH PREMATURE VENTRICULAR OR ABERRANTLY CONDUCTED COMPLEXES RIGHT BUNDLE BRANCH BLOCK ABNORMAL ECG WHEN COMPARED WITH ECG OF 19-JUN-2018 02:06, INVERTED T WAVES HAVE REPLACED NONSPECIFIC T WAVE ABNORMALITY IN ANTERIOR LEADS Confirmed by SHRUTHI FREDERICK MD ([id number]) on 06/19/2018 6:01:42 PM Referred By: Ventura BISWAS Confirmed By:SHRUTHI FREDERICK MD
[2018-06-19] MEDS ORDERED: PT OWN MED DRAWER 7, Y5N ONE (18:48)
[2018-06-19] MEDS: APIXABAN 5 MG TABLET PO SCH (21:54)
[2018-06-20] MEDS ORDERED: PT OWN MED DRAWER 7, Y5N ONE (05:48)
[2018-06-20 06:55] LABS: ALBUMIN 3.6 g/dl (3.4-5.0); ALK PHOS 98 U/L (45-117); ANION GAP 10 MMOL/L (8-16); BILIRUBIN,TOTAL 0.4 mg/dL (0.2-1); BLOOD UREA NITROGEN 13 mg/dL (7-18); CALCIUM 8.7 mg/dL (8.5-10.1); CHLORIDE 106 mmol/L (98-107); CO2 25 mmol/L (21-32); CREATININE 0.8 mg/dL (0.55-1.3); GLUCOSE,RANDOM 105 mg/dL (74-106); POTASSIUM 4.3 mmol/L (3.5-5.1); SGOT/AST 38 U/L (15-37); SGPT/ALT 56 U/L (13-61); SODIUM 141 mmol/L (136-145); TOT PROT 7.5 g/dl (6.4-8.2)
[2018-06-20] MEDS ORDERED: predniSONE 20 MG TABLET (UD) ONE (09:37)
[2018-06-20] MEDS ORDERED: predniSONE 10 MG TABLET (UD) ONE (09:37)
[2018-06-20] MEDS: DOCUSATE SODIUM 100 MG CAPSULE (FP) PO SCH ×2 (09:51→21:35)
[2018-06-20] MEDS: predniSONE 20 MG, predniSONE 10 MG PO SCH (09:52)
[2018-06-20] MEDS: LOSARTAN POTASSIUM 50 MG TABLET (FP) PO SCH (09:52)
[2018-06-20] MEDS: APIXABAN 5 MG TABLET PO SCH ×2 (09:53→21:35)
[2018-06-20] MEDS: FLUTICASONE PROP 0.05% 16 GM NASAL SPRAY NS SCH (09:53)
[2018-06-20] MEDS: PANTOPRAZOLE 40 MG TABLET (FP) PO SCH (09:54)
--- NOTE | 2018-06-20 09:54 | PN ---
Physical Exam: SUBJECTIVE: No new complaints today. No episodes of chest pain or palpitations by pt. No events on monitor to report. Pt states he's awaiting his to bring his home Advair and proair inhaler. OBJECTIVE: Vital Signs Period Temp Pulse Resp BP Sys/Gill Pulse Ox Last 24 Hr 97.6 F-98.6 F 67-101 19-20 116-150/69-97 96 GENERAL: NAD, awake, alert, and fully oriented, sitting up in bed with 3 pillows HEENT: EOMi, JENNIFER, sclera anicteric, MMM NECK: No JVD LUNGS: Expiratory wheezes bilaterally most notable at the bases, no accessory muscle use. HEART: RRR, S1, S2 without murmur ABDOMEN: Soft, NT/ND, normoactive BS, no hepatojugular reflux, no guarding. EXTREMITIES: 2+ DP pulses, warm, well-perfused. Peripheral edema PSYCH: Normal mood, normal affect. SKIN: Warm, dry, no rashes or lesions noted Laboratory Results - last 24 hr 06/19/18 06/19/18 06/20/18 09:00 15:55 05:30 PTT (Actin FS) 45.3 H 49.6 H Sodium 141 Potassium 4.3 Chloride 106 Carbon Dioxide 25 Anion Gap 10 BUN 13 Creatinine 0.8 Creat Clearance w eGFR > 60 Random Glucose 105 Hemoglobin A1c % Calcium 8.7 Total Bilirubin 0.4 AST 38 H ALT 56 Alkaline Phosphatase 98 Total Protein 7.5 Albumin 3.6 06/20/18 05:30 PTT (Actin FS) Sodium Potassium Chloride Carbon Dioxide Anion Gap BUN Creatinine Creat Clearance w eGFR Random Glucose Hemoglobin A1c % 6.1 Calcium Total Bilirubin AST ALT Alkaline Phosphatase Total Protein Albumin Active Medications Generic Name Dose Route Start Last Admin Trade Name Freq PRN Reason Stop Dose Admin Albuterol Sulfate 2 puff 06/19/18 01:31 Ventolin Hfa Inhaler - IH Q6H PRN ASTHMA Apixaban 5 mg 06/19/18 22:00 06/19/18 21:54 Eliquis - PO 5 mg BID ESTHER Administration Docusate Sodium 100 mg 06/19/18 10:00 06/19/18 21:54 Colace - PO 100 mg BID ESTHER Administration Fluticasone Propionate 1 spray 06/19/18 10:00 06/19/18 14:29 Flonase - NS 1 spray DAILY ESTHER Administration Losartan Potassium 50 mg 06/19/18 10:00 06/19/18 09:56 Cozaar - PO 50 mg DAILY ESTHER Administration Metoprolol Succinate 50 mg 06/19/18 22:00 06/19/18 21:54 Toprol Xl - PO 50 mg BID ESTHER Administration Pantoprazole Sodium 40 mg 06/19/18 15:00 06/19/18 17:58 Protonix - PO 40 mg DAILY ESTHER Administration Prednisone 20 mg/ Prednisone 30 mg 06/20/18 10:00 10 mg PO DAILY ESTHER ASSESSMENT/PLAN: 1) Atrial fibrillation --Newly diagnosed --[id number] 2; Continue Eliquis 5mg BID PO --Currently rate controlled: --Continue Toprol XL 50mg BID PO --Cardiology on board --Echocardiogram tomorrow --Cardiac stress test tomorrow 2) HTN Slightly elevated today at 150/97 Continue Cozaar at current dose Monitor BP; if elevated may have to titrate up doses 3) Pre-diabetes --A1c 6.1% --Encourage diet and exercise modifications --Will need to follow as an outpatient 4) COPD history --Active currently with wheezing --Steroid taper to continue --Prednisone 30mg qDaily (second dose today) --No abx needed as leukocytosis likely 2/2 from steroid use --Continue home advair and proair inhalers --Duonebs on board PRN for shortness of breath FEN: Fluids: None currently Electrolyte abnormalities: none currently Nutrition: Cholesterol/fat controlled; NPO AFTER MIDNIGHT TODAY PPX: DVT - Already on eliquis GI - Protonix on board Dispo: continue mgmt on telemetry Case to be discussed Esvin Epstein, DO - IM PGY-2 Visit type - Emergency Visit Emergency Visit: Yes ED Registration Date: 06/19/18 Care time: The patient presented to the Emergency Department on the above date and was hospitalized for further evaluation of their emergent condition. - New Patient This patient is new to me today: No - Critical Care Critical Care patient: No
--- NOTE | 2018-06-20 10:41 | PN ---
Progress Note (short form) - Note Progress Note: s: no cp sob palps dizzy o: Vital Signs Period Temp Pulse Resp BP Sys/Gill Pulse Ox Last 24 Hr 97.6 F-98.6 F 67-101 19-20 116-150/69-97 96 nad no jvd rrr s1s2 no mrg cta bl nl eff aaox3 no le e/c/c abd nt nd pos bs no jaundice diaphoresis Current Medications Generic Name Dose Route Start Last Admin Trade Name Freq PRN Reason Stop Dose Admin Albuterol Sulfate 2 puff 06/19/18 01:31 Ventolin Hfa Inhaler - IH Q6H PRN ASTHMA Apixaban 5 mg 06/19/18 22:00 06/20/18 09:53 Eliquis - PO 5 mg BID ESTHER Administration Docusate Sodium 100 mg 06/19/18 10:00 06/20/18 09:51 Colace - PO 100 mg BID ESTHER Administration Fluticasone Propionate 1 spray 06/19/18 10:00 06/20/18 09:53 Flonase - NS 1 spray DAILY ESTHER Administration Losartan Potassium 50 mg 06/19/18 10:00 06/20/18 09:52 Cozaar - PO 50 mg DAILY ESTHER Administration Metoprolol Succinate 50 mg 06/19/18 22:00 06/20/18 09:54 Toprol Xl - PO 50 mg BID ESTHER Administration Pantoprazole Sodium 40 mg 06/19/18 15:00 06/20/18 09:54 Protonix - PO 40 mg DAILY ESTHER Administration Prednisone 20 mg/ Prednisone 30 mg 06/20/18 10:00 06/20/18 09:52 10 mg PO 30 mg DAILY ESTHER Administration CBC, BMP 06/19/18 06:00 06/20/18 05:30 cxr: clear lungs tele: sr ecg: afib rvr 170s, rbbb, no st changes a/p: 62 m hx htn, gout here with cp, palps. cp, palps, new afib with rvr: -no signs acs or chf -symptoms likely due to afib with rvr, improved with rate control -now in SR, cont toprol 50 bid -tsh wnl -check echo -will check nuclear stress test tomorrow as well to r/o significant underlying cad causing his sxs -chadsvasc warrants ac, started eliquis 5 bid htn: -controlled
--- NOTE | 2018-06-20 13:10 | PN ---
Teaching Attending Note Name of Resident: Esvin Epstein ATTENDING PHYSICIAN STATEMENT I saw and evaluated the patient. I reviewed the resident's note and discussed the case with the resident. I agree with the resident's findings and plan as documented. SUBJECTIVE:asymptomatic. no longer experiencing CP. denies CP, SOB, fever, chills, N/V/C/D OBJECTIVE: Last Vital Signs Temp Pulse Resp BP Pulse Ox 97.8 F 68 20 156/86 96 06/20/18 08:00 06/20/18 08:00 06/20/18 08:00 06/20/18 08:00 06/19/18 20:28 General NAD CV S1 S2 + Lungs CTA B/L no wheezing/rales/rhonchi ASSESSMENT AND PLAN: 62yo M [facility] COPD, gout, HTN presented to the ER [facility] ass[facility] with SOB and palpitations and found to have afib iwth RVR 1. Afib with RVR- newly diagnosed. rate now controlled. will need to monitor while on betablocker with COPD hx. NPO tonight for stress test in AM. echo pending. on eliquis. cardio on board. 2. Pre-diabetes- A1c 6.1 with obesity and hyperglycemia. discussed in detail risks assoc with uncontrolled DM and increased mortality. lifestyle modifications discussed weight loss and diet. automation controls specialist consult. will need repeat A1c in 3 months to see if improved. 3. Acute transaminitis-likely due to hypoperfusion. now resolved. hepatitis panel pending 4. Leukocytosis- no signs of infection. is on steroid taper at this time for recent COPD flare. will hold abx 5. COPD-no wheezing. re-started prednisone taper on 30mg currently. cont per PMD instructions. bad reaction to symbicort (tongue stinging?) to bring in advair. cont inhalers 6. Hypertriglycerdemia- unknwon if fasting levels. dietary changes. repeat in 6 months. if >500 will need start medications 7. HTN- controlled. cont home medications 8. DVT ppx- eliquis 9. spoke with present at bedside. all questions answered. discussed in detail regarding lifestyle changes and new medications. possible d/c tomorrow pending results of test
[2018-06-21 06:03] LABS: HEMOGLOBIN 13.3 GM/dL (11.7-16.9); MCH 28.3 pg (25.7-33.7); MCHC 32.4 g/dl (32.0-35.9); MEAN CELL VOLUME 87.1 fl (80-96); MEAN PLT VOLUME 8.4 fl (7.5-11.1); PLATELET COUNT 255 K/MM3 (134-434); RBC 4.71 M/mm3 (4.00-5.60); RDW 13.8 % (11.9-15.9); WHITE BLOOD COUNT 14.9 K/mm3 (4.0-10.0)
[2018-06-21] MEDS: LOSARTAN POTASSIUM 50 MG TABLET (FP) PO SCH ×2 (08:43→13:17)
[2018-06-21] MEDS ORDERED: PT OWN MED DRAWER 7, Y5N ONE (09:26)
[2018-06-21] MEDS ORDERED: REGADENOSON 0.4 MG/5 ML PRE-FILLED SYRINGE IVPUSH ONE ×2 (09:45→10:35)
--- NOTE | 2018-06-21 09:48 | PN ---
Physical Exam: SUBJECTIVE: Patient seen and examined at bedside. States he is feeling much better- he had some mild chest discomfort yesterday however, is not experiencing any this morning. He is now back in sinus rhythm and his heart rate is much more controlled and has not had any palpitations. He got an echocardiogram done this AM and is also going for a stress test this morning. He denies any CP,SOB, N/V OBJECTIVE: Vital Signs Period Temp Pulse Resp BP Sys/Gill Pulse Ox Last 24 Hr 97.9 F-98.5 F 61-74 18-20 130-157/70-100 95 GENERAL: The patient is awake, alert, and fully oriented, in no acute distress. NECK: no JVD appreciated LUNGS: CTA B/L; no rales, rhonchi or wheezing HEART: Regular rate and rhythm, S1, S2 without murmur, rub or gallop. ABDOMEN: Soft, nontender, nondistended, normoactive bowel sounds, no guarding, no rebound, no hepatosplenomegaly, no masses. EXTREMITIES: 2+ pulses, warm, well-perfused, no edema. PSYCH: Normal mood, normal affect. SKIN: Warm, dry, normal turgor, no rashes or lesions noted Laboratory Results - last 24 hr 06/21/18 06/21/18 05:30 05:30 WBC 14.9 H RBC 4.71 Hgb 13.3 Hct 41.0 MCV 87.1 MCH 28.3 MCHC 32.4 RDW 13.8 Plt Count 255 MPV 8.4 PTT (Actin FS) 36.1 Active Medications Generic Name Dose Route Start Last Admin Trade Name Freq PRN Reason Stop Dose Admin Albuterol Sulfate 2 puff 06/19/18 01:31 06/20/18 20:17 Ventolin Hfa Inhaler - IH 2 puff Q6H PRN Administration ASTHMA Apixaban 5 mg 06/19/18 22:00 06/20/18 21:35 Eliquis - PO 5 mg BID ESTHER Administration Docusate Sodium 100 mg 06/19/18 10:00 06/20/18 21:35 Colace - PO 100 mg BID ESTHER Administration Fluticasone Propionate 1 spray 06/19/18 10:00 06/20/18 09:53 Flonase - NS 1 spray DAILY ESTHER Administration Losartan Potassium 50 mg 06/19/18 10:00 06/21/18 08:43 Cozaar - PO 50 mg DAILY ESTHER Administration Metoprolol Succinate 50 mg 06/19/18 22:00 06/20/18 21:35 Toprol Xl - PO 50 mg BID ESTHER Administration Pantoprazole Sodium 40 mg 06/19/18 15:00 06/20/18 09:54 Protonix - PO 40 mg DAILY ESTHER Administration Prednisone 20 mg/ Prednisone 30 mg 06/20/18 10:00 06/20/18 09:52 10 mg PO 30 mg DAILY ESTHER Administration Regadenoson 0.4 mg 06/21/18 09:45 Lexiscan IVPUSH 06/21/18 09:46 ONCE ONE ASSESSMENT/PLAN: Atrial fibrillation --Newly diagnosed --C/W Eliquis 5mg PO BID --Currently in sinus rhythm- c/w Toprol 50 XL BID --Cardiology on board --Echo and Stress test performed this AM- both normal 2) HTN BP this am was 131/79 c/w Cozaar 50mg daily Monitor BP; 3) Pre-diabetes --A1c 6.1% --Encourage diet and exercise modifications --Will need to follow as an outpatient 4) COPD history --no longer having any wheezing --Steroid taper to continue --Continue home advair and proair inhalers; duonebs PRN - FEN: Fluids: None currently Electrolyte abnormalities: none currently Nutrition: Cholesterol/fat controlled PPX: DVT -eliquis GI - Protonix Problem List - Problems (1) Atrial fibrillation with RVR Code(s): I48.91 - UNSPECIFIED ATRIAL FIBRILLATION (2) Asthma Code(s): J45.909 - UNSPECIFIED ASTHMA, UNCOMPLICATED Qualifiers: Asthma severity: mild persistent Asthma complication type: uncomplicated Qualified Code(s): J45.30 - Mild persistent asthma, uncomplicated Visit type - Emergency Visit Emergency Visit: Yes ED Registration Date: 06/19/18 Care time: The patient presented to the Emergency Department on the above date and was hospitalized for further evaluation of their emergent condition. - New Patient This patient is new to me today: Yes Date on this admission: 06/21/18 - Critical Care Critical Care patient: No
[2018-06-21] MEDS ORDERED: predniSONE 20 MG TABLET (UD) ONE (12:05)
[2018-06-21] MEDS ORDERED: predniSONE 10 MG TABLET (UD) ONE (12:05)
[2018-06-21] MEDS: APIXABAN 5 MG TABLET PO SCH (13:16)
[2018-06-21] MEDS: DOCUSATE SODIUM 100 MG CAPSULE (FP) PO SCH (13:16)
[2018-06-21] MEDS: predniSONE 20 MG, predniSONE 10 MG PO SCH (13:16)
[2018-06-21] MEDS: PANTOPRAZOLE 40 MG TABLET (FP) PO SCH (13:16)
[2018-06-21] MEDS: FLUTICASONE PROP 0.05% 16 GM NASAL SPRAY NS SCH (13:17)
[2018-06-21 14:11] LABS: HEP.C VIRUS AB <0.1 s/co ratio (0.0-0.9)
[2018-06-21 15:19] VITALS: BP 122/61; PULSE 66; TEMP 98.2
--- NOTE | 2018-06-21 15:35 | ECHO ---
Name: ERIC JAVIER Exam:Adult Echocardiogram Study Date: 06/21/2018 07:25 AM Age: 62 yrs Reason For Study: new a fib Height: 68 in Weight: 208 lb BSA: 2.1 m2 MMode/2D Measurements & Calculations IVSd: 0.93 cm Ao root diam: 3.7 cm LVIDd: 4.7 cm LA dimension: 3.3 cm LVIDs: 2.7 cm ACS: 2.1 cm LVPWd: 1.1 cm IVSs: 1.2 cm LVPWs: 1.2 cm EDV(Teich): 103.5 ml ESV(Teich): 27.0 ml Doppler Measurements & Calculations MV E max dharmesh: 98.5 cm/sec Ao V2 max: 111.2 cm/sec MV A max dharmesh: 81.2 cm/sec Ao max P.9 mmHg MV E/A: 1.2 Ao V2 mean: 84.4 cm/sec Ao mean P.1 mmHg Ao V2 VTI: 26.1 cm MR max dharmesh: 486.2 cm/sec TR max dharmesh: 234.3 cm/sec MR max P.9 mmHg TR max P.0 mmHg PI end-d dharmesh: 104.1 cm/sec Med Peak E' Dharmesh: 7.3 cm/sec Med E/e': 13.6 Lat Peak E' Dharmesh: 7.8 cm/sec Lat E/e': 12.6 Procedure A complete two-dimensional transthoracic echocardiogram was performed (2D, M-mode, Doppler and color flow Doppler). Left Ventricle The left ventricle is normal in size. Left ventricular systolic function is normal. Ejection Fraction = 65- 70%. No regional wall motion abnormalities noted. Right Ventricle The right ventricle is normal size. The right ventricular systolic function is normal. Atria The left atrial size is normal. Right atrial size is normal. Mitral Valve The mitral valve is normal in structure and function. There is mild mitral regurgitation. Tricuspid Valve The tricuspid valve is normal in structure and function. No tricuspid regurgitation. Right ventricula r systolic pressure is normal. Aortic Valve The aortic valve is normal in structure and function. No aortic regurgitation is present. Pulmonic Valve The pulmonic valve is not well visualized. Great Vessels The aortic root is normal size. Pericardium/Pleura There is no pericardial effusion. Interpretation Summary The left ventricle is normal in size. Left ventricular systolic function is normal. No regional wall motion abnormalities noted. Ejection Fraction = 65-70%. The right ventricular systolic function is normal. The left atrial size is normal. Right atrial size is normal. There is mild mitral regurgitation. Right ventricular systolic pressure is normal. There is no pericardial effusion. Previous study is not available for comparison Tye Barbour MD 06/21/2018 03:35 PM
--- NOTE | 2018-06-21 15:38 | PN ---
Progress Note (short form) - Note Progress Note: s: no cp sob palps dizzy o: Vital Signs Period Temp Pulse Resp BP Sys/Gill Pulse Ox Last 24 Hr 97.9 F-98.5 F 61-74 18-20 122-157/61-100 95-95 nad no jvd rrr s1s2 no mrg cta bl nl eff aaox3 no le e/c/c abd nt nd pos bs no jaundice diaphoresis Current Medications Albuterol Sulfate (Ventolin Hfa Inhaler -) 2 puff IH Q6H PRN PRN Reason: ASTHMA Last Admin: 06/20/18 20:17 Dose: 2 puff Apixaban (Eliquis -) 5 mg PO BID [facility] Last Admin: 06/21/18 13:16 Dose: 5 mg Docusate Sodium (Colace -) 100 mg PO BID [facility] Last Admin: 06/21/18 13:16 Dose: 100 mg Fluticasone Propionate (Flonase -) 1 spray NS DAILY [facility] Last Admin: 06/21/18 13:17 Dose: 1 spray Losartan Potassium (Cozaar -) 50 mg PO DAILY [facility] Last Admin: 06/21/18 13:17 Dose: Not Given Metoprolol Succinate (Toprol Xl -) 50 mg PO BID [facility] Last Admin: 06/21/18 13:16 Dose: 50 mg Pantoprazole Sodium (Protonix -) 40 mg PO DAILY [facility] Last Admin: 06/21/18 13:16 Dose: 40 mg Prednisone 20 mg/ Prednisone (10 mg) 30 mg PO DAILY [facility] Last Admin: 06/21/18 13:16 Dose: 30 mg cxr: clear lungs tele: sr, PACs ecg: afib rvr 170s, rbbb, no st changes nuclear stress 05/2018 nl LV function, small zone of inferobasal reversible defect c/w mild ischemia a/p: 62 m hx htn, gout here with cp, palps. cp, palps, new afib with rvr: -no signs acs or chf -symptoms likely due to afib with rvr, improved with rate control -now in SR, cont toprol 50 bid -tsh wnl - echo report pending - nuclear stress test shows small area of mild ischemia. symptoms were likely related to afib with RVR, now resolved, would defer cath at this point and pursue medical management - cont eliquis and toprol - if echo benign, stable for discharge from cardiac perspective htn: -controlled, cont current meds
--- NOTE | 2018-06-21 16:17 | PN ---
Teaching Attending Note Name of Resident: Rhianna Rosenthal ATTENDING PHYSICIAN STATEMENT I saw and evaluated the patient. I reviewed the resident's note and discussed the case with the resident. I agree with the resident's findings and plan as documented. SUBJECTIVE:asymptomatic. denies CP, SOB, fever, chills, N/V/C/D OBJECTIVE: Last Vital Signs Temp Pulse Resp BP Pulse Ox 98.2 F 66 18 122/61 95 06/21/18 14:35 06/21/18 14:35 06/21/18 14:35 06/21/18 14:35 06/21/18 11:49 General NAD CV S1 S2 + Lungs CTA B/L no wheezing/rales/rhonchi ASSESSMENT AND PLAN: [address] [facility] PM COPD, gout, HTN presented to the ER [facility] CP assoc with SOB and palpitations and found to have afib iwth RVR 1. Afib with RVR- now in NSR. rate controlled. awaiting echo and NMST. cont toprol and eliquis. Cardio f/u as outpatient. cardio on board. 2. Pre-diabetes- A1c 6.1 with obesity and hyperglycemia. discussed in detail risks assoc with uncontrolled DM and increased mortality. lifestyle modifications discussed weight loss and diet. credit charge authorizer consult. will need repeat A1c in 3 months to see if improved. 3. Acute transaminitis-likely due to hypoperfusion. now resolved. hepatitis panel pending 4. Leukocytosis- no signs of infection. is on steroid taper at this time for recent COPD flare. will hold abx 5. COPD-no wheezing. cont pred taper per PMD instructions. bad reaction to symbicort (tongue stinging?) to bring in advair. cont inhalers 6. Hypertriglycerdemia- unknown if fasting levels. dietary changes. repeat in 6 months. if >500 will need start medications 7. HTN- controlled. cont home medications 8. DVT ppx- eliquis 9. d/c home pending [facility] results
== END 2018-06-21 18:11 | disposition home or self-care (01) | DRG 201 ==
LOC: JER 21:54 → JERBED 06-19 00:52 → UNDOADMIN 06-19 01:16 → J4W 06-19 08:27
PROVIDERS: ADMIT Internal Medicine; ATTEND Internal Medicine
DX: I48.91 Unspecified atrial fibrillation (principal); J45.909 Unspecified asthma, uncomplicated; I10 Essential (primary) hypertension; R74.0 Nonspecific elevation of levels of transaminase and lactic acid dehydrogenase [LDH]; D72.829 Elevated white blood cell count, unspecified; J44.9 Chronic obstructive pulmonary disease, unspecified; E78.1 Pure hyperglyceridemia; R07.9 Chest pain, unspecified; E66.9 Obesity, unspecified; Z68.31 Body mass index [BMI] 31.0-31.9, adult
CPT/HCPCS: 36415; 71045-TC-FY; 78452-TC; 80048; 80053; 80061; 80074; 81003; 82550; 82553; 83036; 83690; 83721; 83735; 84100; 84443; 84484; 85025; 85027; 85610; 85730; 93005; 93010; 93017; 93306-TC; 99284-25; A9502; J1644; J7030

== ENCOUNTER 2022-03-19 04:15 | Day surgery (SDC) | payer OTHER ==
[2022-03-17 15:00] VITALS: BMI 35.2
[2022-03-19] MEDS ORDERED: MIDAZOLAM HCL 2 MG/2 ML SINGLE DOSE VIAL ONE ×2 (08:47)
[2022-03-19] MEDS ORDERED: PROPOFOL 20 ML ONE ×3 (09:00→10:21)
[2022-03-19] MEDS ORDERED: ceFAZolin SODIUM 1 GM VIAL IVPB ONE (09:37)
[2022-03-19] MEDS ORDERED: ceFAZolin SODIUM 1 GM VIAL ONE (09:41)
[2022-03-19] MEDS ORDERED: DEXAMETHASONE SOD PHOSPHATE 4 MG/1 ML VIAL ONE (09:46)
[2022-03-19] MEDS ORDERED: LIDOCAINE HCL/PF 2% SDV 5ML VIAL ONE (10:21)
[2022-03-19] MEDS ORDERED: KETOROLAC TROMETHAMINE 30 MG/1 ML VIAL ONE (10:35)
[2022-03-19] MEDS ORDERED: ONDANSETRON 4 MG/2 ML VIAL IVPUSH PRN (11:21)
[2022-03-19] MEDS ORDERED: LACTATED RINGERS SOLUTION 1,000 ML IV SCH (11:30)
[2022-03-19 13:11] VITALS: TEMP 97
[2022-03-19 13:13] VITALS: BP 140/81; PULSE 74
== END 2022-03-19 13:10 | disposition home or self-care (01) ==
LOC: JASU-SURG 04:15
PROVIDERS: ATTEND Orthopaedic Surgery
PROC: 0RNJ4ZZ Release Right Shoulder Joint, Percutaneous Endoscopic Approach (ICD-10-PCS; 2022-03-19)
PROC: 0LM14ZZ Reattachment of Right Shoulder Tendon, Percutaneous Endoscopic Approach (ICD-10-PCS; principal; 2022-03-19 08:45)
PROC: 0LS34ZZ Reposition Right Upper Arm Tendon, Percutaneous Endoscopic Approach (ICD-10-PCS; 2022-03-19 08:45)
DX: S46.211A Strain of muscle, fascia and tendon of other parts of biceps, right arm, initial encounter (principal); X58.XXXA Exposure to other specified factors, initial encounter; Y93.9 Activity, unspecified; Y92.9 Unspecified place or not applicable; Y99.9 Unspecified external cause status; M75.101 Unspecified rotator cuff tear or rupture of right shoulder, not specified as traumatic
CPT/HCPCS: 82962; 94760